=== PATIENT | male | born 1975 | race American Indian/Alaskan Native ===

== ENCOUNTER 2021-05-05 17:44 | Emergency (ER) | payer SELFPAY ==
[2021-05-05 19:39] LABS: Basophils % (Auto) 0.2 % (0.0-1.8); Eosinophils # (Auto) 0.2 K/mm3 (0.0-0.4); Hematocrit 43.1 % (35.5-45.6); Hemoglobin 14.6 gm/dl (11.8-15.2); Lymphocytes % (Auto) 23.3 % (13.4-35.0); Mean Corpuscular HGB Conc 34 % (32-34); Mean Corpuscular Volume 113 fl (84-94); Monocytes # (Auto) 0.7 K/mm3 (0.0-0.8); Monocytes % (Auto) 8.3 % (0.0-7.3); Platelet Count 241 K/mm3 (140-440); Red Blood Count 3.81 M/mm3 (3.65-5.03); Red Cell Distribution Width 15.5 % (13.2-15.2)
[2021-05-05 19:55] LABS: BUN/Creatinine Ratio 16; Blood Urea Nitrogen 14 mg/dL (9-20); Calcium 8.9 mg/dL (8.4-10.2); Hemolysis Index 12
--- NOTE | 2021-05-05 19:56 | Emergency Department Report ---
ED GI Bleed [facility] - General Chief complaint: GI Bleed Stated complaint: RECTAL BLEEDING Time Seen by Provider: 05/05/21 18:40 Source: patient Mode of arrival: Ambulatory Limitations: No Limitations - History of Present Illness Initial comments: 46-year-old male, history of diabetes, presents to ED with rectal bleeding x2 weeks. Patient reports streaking of blood in stool and seeing blood on toilet paper when he wipes. He denies any painful stools or abdominal pain. MD complaint: blood on toilet paper -: week(s) (2) Severity scale (0 -10): 0 Quality: painless Consistency: intermittent Improves with: none Worsens with: bowel movement Associated Symptoms: denies: abdominal pain, nausea, vomiting, fever/chills - Related Data Allergies Allergy/AdvReac Type Severity Reaction Status Date / Time No Known Allergies Allergy Unverified 05/05/21 17:54 ED Review of Systems ROS: Stated complaint: RECTAL BLEEDING Other details as noted in HPI ED Physical Exam - General Limitations: No Limitations General appearance: alert, in no apparent distress - Head Head exam: Present: atraumatic, normocephalic - Eye Eye exam: Present: normal appearance, PERRL, EOMI - ENT ENT exam: Present: mucous membranes moist - Neck Neck exam: Present: normal inspection - Respiratory Respiratory exam: Present: normal lung sounds bilaterally. Absent: respiratory distress - Cardiovascular Cardiovascular Exam: Present: regular rate, normal rhythm - GI/Abdominal GI/Abdominal exam: Present: soft. Absent: distended, tenderness - Rectal Rectal exam: Present: heme (-) stool, other (stool brown in color) - Extremities Exam Extremities exam: Present: normal inspection - Neurological Exam Neurological exam: Present: alert, oriented X3 - Psychiatric Psychiatric exam: Present: normal affect, normal mood - Skin Skin exam: Present: warm, dry, intact, normal color ED Course Vital Signs 05/05/21 05/05/21 05/05/21 17:46 18:50 21:58 Temperature 98.5 F Pulse Rate 89 93 H Respiratory 18 18 Rate Blood Pressure 156/82 143/79 [Right] O2 Sat by Pulse 99 99 99 Oximetry ED Medical Decision Making - Lab Data Result diagrams: 05/05/21 19:18 05/05/21 19:18 - Medical Decision Making 46-year-old male presents to ED with 2-week history of intermittent rectal bleeding. Hemoglobin is normal. Vital signs are stable. Patient will be discharged at this time. Outpatient follow-up advised, return precautions given. Critical care attestation.: If time is entered above; I have spent that time in minutes in the direct care o f this critically ill patient, excluding procedure time. ED Disposition Clinical Impression: Rectal bleeding Disposition: HOME / SELF CARE / HOMELESS Is pt being admited?: No Condition: Stable Instructions: Gastrointestinal Bleeding, Bzqa-on-[id number] Referrals: [facility] [Provider Group] - 3-5 Days [facility] [Provider Group] - 3-5 Days [facility] [Outside] - 3-5 Days LAZARA CLARKE MD [Staff Physician] - 3-5 Days SALONI MARTINEZ MD [Staff Physician] - 3-5 Days YOEL JAVIER DPM [Staff Physician] - 3-5 Days Forms: Accompanied Note Time of Disposition: 21:21
[2021-05-05 22:01] VITALS: BP 143/79
== END 2021-05-05 21:58 | disposition home or self-care (01) ==
LOC: ED 17:44
DX: K62.5 Hemorrhage of anus and rectum (principal)
CPT/HCPCS: 36415; 80048; 85025; 99283